=== PATIENT | female | born 2000 | race Caucasian/White ===

== ENCOUNTER → 2022-06-11 15:10 | Outpatient (CLI) | payer BC, SELFPAY | PROVIDERS: PCP Physician Assistant; Referring Provider Nurse Practitioner Adult Health; Visit Provider Nurse Practitioner Adult Health | DX: Z11.3 Encounter for screening for infections with a predominantly sexual mode of transmission (principal) | CPT/HCPCS: 87491; 87591; 87661 ==

== ENCOUNTER → 2022-10-08 14:57 | Outpatient (CLI) | payer OTHER, SELFPAY ==
--- NOTE | 2022-10-08 14:59 | DI.US.S_ITS ---
PROCEDURE: US OB <= 14 WEEKS FETUS INDICATIONS: SIZE AND DATES OUTSIDE/PRIOR DATING DATA: Last menstrual period (LMP): 08/03/2022. LMP-based estimated date of delivery (KATIE): 05/10/2023 First dating scan (date and location): 10/08/2022 at Estimated date of delivery (KATIE) from first dating scan: 05/08/2023 TECHNIQUE: Real-time scanning was performed of the fetus and maternal pelvic organs, with image documentation. Endovaginal scanning was also performed to better visualize the fetus and maternal ovaries. COMPARISON: None. FINDINGS: There is a single living IUP. The estimated gestational age is 9 weeks 5 days. There is heart tone with heart rate 162 BPM. A normal yolk sac is noted. Maternal organs: Ovaries are grossly normal.. IMPRESSION: 1. A single living intrauterine gestation is present with an estimated gestational age of 9 weeks 5 days, corresponding to ultrasound KATIE 05/08/2023. Ultrasound dating concordant with clinical dating. We strive to produce accurate, complete, and clear reports of imaging services. To assist us in improving patient care, this report was composed using standard report templates and voice recognition software. Therefore, it may contain abnormal punctuation, insertions and/or omissions. Occasional wrong-word or sound-alike substitutions may occur. Though we review the report and make efforts to correct it, we do recommend that the report be read carefully in proper context to recognize any text inaccuracies. Dictated by: Dian Nur M.D. on 10/09/2022 at 9:34 Approved by: Dian Nur M.D. on 10/09/2022 at 9:42
== END ==
PROVIDERS: PCP Physician Assistant; Referring Provider Family Medicine; Visit Provider Family Medicine
DX: Z36.87 Encounter for antenatal screening for uncertain dates (principal); Z3A.09 9 weeks gestation of pregnancy
CPT/HCPCS: 76801

== ENCOUNTER → 2024-09-02 12:58 | Outpatient (CLI) | payer OTHER, SELFPAY | PROVIDERS: PCP Family Medicine; Visit Provider Physician Assistant Medical | DX: R39.9 Unspecified symptoms and signs involving the genitourinary system (principal); R30.0 Dysuria | CPT/HCPCS: 87086 ==